=== PATIENT | male | born 1995 | race Caucasian/White ===

== ENCOUNTER 2025-06-05 15:29 | Emergency (ER) | payer MEDICAID, SELFPAY ==
[2025-06-05] VITALS (8 sets, daily range): BP systolic 118–146; BP diastolic 83–102; PULSE 99–160; RESP 15–22; TEMP 36.9–37.9; O2SAT 96–99; BMI 25.1
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
--- NOTE | 2025-06-05 16:25 | EKG_ITS ---
[facility] Test Date: 2025-06-05 Pat Name: FLORENCE HARRIS Department: Room: - Gender: Male Patient Admitting Clerk: : 1995 Requested By: Fili Leyva Order Number: [id number] Reading MD: Fili Leyva Measurements Intervals [place] Rate: 110 P: 51 MN: 108 QRS: 100 QRSD: 101 T: 55 QT: 326 QTc: 443 Interpretive Statements SINUS TACHYCARDIA WITH SHORT MN INTERVAL BORDERLINE RIGHT AXIS DEVIATION [QRS AXIS > 90] ST ELEVATION CONSISTENT WITH INJURY, PERICARDITIS, OR EARLY REPOLARIZATION [ST ELEVATION W/O NORMALLY INFLECTED T-WAVE] No previous ECG available for comparison /store/S0/[id number].pdf
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
[2025-06-05 17:04] LABS: Basophils # (Auto) 0.0 Thou/mm3 (0.0-0.2); Basophils % (Auto) 0 % (0-2.5); Eosinophils # (Auto) 0.0 Thou/mm3 (0.0-0.5); Eosinophils % (Auto) 0 % (0-10); Hematocrit 45.8 % (41.0-53.0); Hemoglobin 16.4 g/dL (13.5-16.0); Immature Granulocytes Auto 0.05 Thou/mm3 (0.00-0.00); Lymphocytes # (Auto) 0.6 Thou/mm3 (1.0-4.8); Lymphocytes % (Auto) 5 % (10-50); Mean Corpuscular HGB Conc 35.8 g/dl (31.0-37.0); Mean Corpuscular Hemoglobin 31.2 pg (25.0-35.0); Mean Corpuscular Volume 87 fL (80-100); Monocytes # (Auto) 0.8 Thou/mm3 (0.0-0.8); Monocytes % (Auto) 7 % (0-12); Neutrophils # (Auto) 10.4 Thou/mm3 (1.8-7.7); Neutrophils % (Auto) 87 % (37-80); Nucleated Red Blood Cell # 0.00 Thou/mm3 (0.00-0.00); Nucleated Red Blood Cell % 0 /100 WBC (0); Platelet Count 117 Thou/mm3 (140-440); RDW Standard Deviation 40.6 fL (35.1-43.9); Red Blood Count 5.26 Miln/mm3 (4.50-5.90); White Blood Count 11.9 Thou/mm3 (3.8-10.6)
[2025-06-05 17:15] LABS: Alanine Aminotransferase 75 U/L (10-49); Albumin, Serum 4.6 gm/dL (3.5-5.0); Albumin/Globulin Ratio 1.3 (1.2-2.2); Alkaline Phosphatase 160 U/L (46-116); Anion Gap 12 (7-16); Aspartate Amino Transferase 88 U/L (0-34); BUN/Creatinine Ratio 6 Ratio (12-20); Bilirubin,Total 2.0 mg/dL (0.3-1.2); Blood Urea Nitrogen < 5 mg/dL (9-23); Calcium 10.2 mg/dL (8.3-10.6); Calcium (Corrected) 10.2 mg/dL (8.5-10.1); Carbon Dioxide 25.3 mMol/L (20.0-31.0); Chloride 94 mMol/L (98-107); Creatinine (Component) 0.9 mg/dL (0.6-1.3); Estimated Creatinine Clearance 127.8 mL/min (>60); Globulin 3.5 gm/dL (2.3-3.5); Glucose 139 mg/dL (74-106); Osmolality,Calculated 261 (275-295); Potassium 3.6 mMol/L (3.4-5.1); Sodium 131 mMol/L (136-145); Total Protein 8.1 gm/dL (5.7-8.2); Troponin I < 0.020 ng/mL (0.0-0.045); eGFR > 60 See Note
[2025-06-05] MEDS: KETOROLAC INJ 30 MG/ML VIAL IVP (17:29)
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
[2025-06-05 21:35] LABS: INR 1.1 (0.9-1.3); Partial Thromboplastin Time 27.3 Seconds (22.0-36.0); Prothrombin Time 11.9 Seconds (9.0-12.2)
[2025-06-05] MEDS: RINGERS LACTATED 1000 ML 1,000 ML IV (21:58)
[2025-06-05] MEDS: MORPHINE SULF INJ 10 MG/ML VIAL 4 MG IVP (22:22)
--- NOTE | 2025-06-05 22:50 | PC.NURSE ---
2111 [facility] CONTACTED [facility]T SENT. PT DECLINED PT NEEDS HIGHER LEVEL OF CARE.
[2025-06-05 22:54] LABS: Alcohol, Blood Medical < 3.0 mg/dL (0-10.0); Bilirubin,Direct 0.7 mg/dL (0.0-0.3); Magnesium 2.3 mg/dL (1.6-2.6); Troponin I < 0.020 ng/mL (0.0-0.045)
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
[2025-06-05 22:56] LABS: Lipase 24 U/L (12-53)
[2025-06-06] VITALS: BP 123/85; PULSE 100; RESP 16; TEMP 36.9; O2SAT 96
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
[2025-06-06] MEDS: MORPHINE SULF INJ 10 MG/ML VIAL 4 MG IVP (01:50)
[2025-06-06 02:00] VITALS: BP 112/79; PULSE 102; RESP 16; TEMP 36.9; O2SAT 98
[2025-06-06 04:00] VITALS: BP 111/83; PULSE 86; RESP 16; TEMP 36.9; O2SAT 98
[2025-06-06] MEDS: HYDROmorphone INJ 2 MG/ML VIAL 1 MG IVP (04:52)
== END 2025-06-06 04:57 | disposition short-term general hospital (02) ==
PROVIDERS: Family Medicine; Emergency Provider Emergency Medicine
DX: S22.059A Unspecified fracture of T5-T6 vertebra, initial encounter for closed fracture (principal); S22.069A Unspecified fracture of T7-T8 vertebra, initial encounter for closed fracture; S22.089A Unspecified fracture of T11-T12 vertebra, initial encounter for closed fracture; S32.019A Unspecified fracture of first lumbar vertebra, initial encounter for closed fracture; S20.219A Contusion of unspecified front wall of thorax, initial encounter; F41.9 Anxiety disorder, unspecified; R00.0 Tachycardia, unspecified; R51.9 Headache, unspecified; S19.9XXA Unspecified injury of neck, initial encounter; R10.811 Right upper quadrant abdominal tenderness; V47.5XXA Car driver injured in collision with fixed or stationary object in traffic accident, initial encounter; Z75.1 Person awaiting admission to adequate facility elsewhere
CPT/HCPCS: 36415; 70450; 71111; 71250; 72125; 74176; 76705; 80053; 80320; 81001; 82248; 83690; 83735; 84484; 85025; 85610; 85730; 93005; 96361; 96374; 96375; 96376; 99284; J1171; J1885; J2270; J7120; G0480